=== PATIENT | female | born 1965 | race Caucasian/White ===

== ENCOUNTER 2017-12-29 09:52 | Emergency (ER) | payer OTHER, SELFPAY ==
[2017-12-29] MEDS ORDERED: HYDROCODONE/APAP 10/325 TAB ONE (10:34)
[2017-12-29] MEDS ORDERED: IBUPROFEN 400 MG TAB ONE (10:35)
[2017-12-29] MEDS ORDERED: IBUPROFEN 200 MG TAB PO ONE (10:35)
[2017-12-29 11:32] LABS: Urine Blood NEGATIVE (NEG); Urine Glucose NEGATIVE (NEG); Urine Protein NEGATIVE (NEG); Urine Specific Gravity 1.025 (1.005-1.030); Urine pH 6.5 (5.0-7.0)
--- NOTE | 2017-12-29 11:52 | RAD REPORT ---
EXAM DESCRIPTION: Ribs Right - 12/29/2017 10:39 am CLINICAL HISTORY: Fall, right-sided rib pain COMPARISON: August 2015 FINDINGS: No displaced rib fractures are present. The posterior- lateral right seventh and eighth ri bs show cortical irregularity that is favored to be old rib trauma change. The comparison portable st udy from 2016 is limited in the ability to correlate this finding. There is no displaced rib fracture present. No lytic, sclerotic or expansile rib lesion. No pneumotho rax, pulmonary contusion or acute parenchymal process. No measurable pleural fluid or blood. IMPRESSION: No displaced rib fracture present and no nondisplaced rib fracture confirmed. Cortical irregularity of the right seventh and eighth ribs believed to be sequela of old trauma. No pneumothorax, pulmonary contusion or pleural fluid collection.
--- NOTE | 2017-12-29 12:00 | EDPHYS ---
Physician Documentation [facility] Name: Jennifer Jones Age: 52 yrs Sex: Female : 1965 Arrival Date: 12/29/2017 Time: 09:54 Bed 19 Private MD: ED Physician Mitchell Ledezma HPI: 12/29 11:00 This 52 yrs old Female presents to ER via Ambulatory with complaints of Fall pm1 Injury. 11:00 Details of fall: The patient fell from an upright position, while standing. Onset: The pm1 symptoms/episode began/occurred yesterday. Associated injuries: The patient sustained right mid back. Severity of symptoms: in the emergency department the symptoms are unchanged. The patient has experienced a previous episode, many years ago, fall with 2 rib fractures. The patient has not recently seen a physician. Patient fell in her bathroom while turning around and hit her right posterior lower ribs against the tub. Patient reports pain with deep breathing and palpation. No headache, head injury, LOC, or neck pain. No shortness of breath or chest pain. IMAGING TECH: 09:59 LMP N/A - Post-menopause aj1 Historical: - Allergies: 09:59 No Known Allergies; aj1 - Home Meds: :59 None [Active]; aj1 - PMHx: 09:59 DJD; aj1 - PSHx: 09:59 Appendectomy; aj1 - Immunization history:: Flu vaccine is not up to date. - Social history:: Smoking status: Patient uses tobacco products, smokes one pack cigarettes per day. - Ebola Screening: : Patient denies travel to an Ebola-affected area in the 21 days before illness onset. ROS: 11:00 Constitutional: Negative for fever, chills, and weight loss, Eyes: Negative for injury, pm1 pain, redness, and discharge, ENT: Negative for injury, pain, and discharge, Neck: Negative for injury, pain, and swelling, Cardiovascular: Negative for chest pain, palpitations, and edema, Respiratory: Negative for shortness of breath, cough, wheezing, and pleuritic chest pain, Abdomen/GI: Negative for abdominal pain, nausea, vomiting, diarrhea, and constipation. 11:00 : Negative for injury, bleeding, discharge, and swelling, MS/Extremity: Negative for injury and deformity, Skin: Negative for injury, rash, and discoloration, Neuro: Negative for headache, weakness, numbness, tingling, and seizure. 11:00 Back: Positive for of the right mid back, pain, Negative for decreased range of motion. Exam: 11:00 Constitutional: This is a well developed, well nourished patient who is awake, alert, pm1 and in no acute distress. Head/Face: Normocephalic, atraumatic. Eyes: Pupils equal round and reactive to light, extra-ocular motions intact. Lids and lashes normal. Conjunctiva and sclera are non-icteric and not injected. Cornea within normal limits. Periorbital areas with no swelling, redness, or edema. ENT: Nares patent. No nasal discharge, no septal abnormalities noted. Tympanic membranes are normal and external auditory canals are clear. Oropharynx with no redness, swelling, or masses, exudates, or evidence of obstruction, uvula midline. Mucous membranes moist. Neck: Trachea midline, no thyromegaly or masses palpated, and no cervical lymphadenopathy. Supple, full range of motion without nuchal rigidity, or vertebral point tenderness. No Meningismus. Chest/axilla: Normal chest wall appearance and motion. Nontender with no deformity. No lesions are appreciated. Cardiovascular: Regular rate and rhythm with a normal S1 and S2. No gallops, murmurs, or rubs. Normal PMI, no JVD. No pulse deficits. Respiratory: Lungs have equal breath sounds bilaterally, clear to auscultation and percussion. No rales, rhonchi or wheezes noted. No increased work of breathing, no retractions or nasal flaring. Abdomen/GI: Soft, non-tender, with normal bowel sounds. No distension or tympany. No guarding or rebound. No evidence of tenderness throughout. 11:00 Skin: Warm, dry with normal turgor. Normal color with no rashes, no lesions, and no evidence of cellulitis. MS/ Extremity: Pulses equal, no cyanosis. Neurovascular intact. Full, normal range of motion. 11:00 Back: pain, of the right mid back, normal spinal alignment noted, CVA tenderness, is absent, vertebral tenderness, is not appreciated. 11:00 Neuro: Orientation: is normal, Motor: is normal, moves all fours, Gait: is steady, at a normal pace, without difficulty. Vital Signs: 09:59 BP 132 / 83; Pulse 89; Resp 18; Temp 97.3; Pulse Ox 97% on R/A; Weight 68.04 kg (R); aj1 Height 5 ft. 3 in. (160.02 cm) (R); Pain 10/10; 11:45 BP 112 / 71; Pulse 61; Resp 16; Pulse Ox 99% on R/A; Pain 0/10; em 09:59 Body Mass Index 26.57 (68.04 kg, 160.02 cm) [facility] MDM: 10:10 Patient medically screened. pm1 11:59 Data reviewed: vital signs. Data interpreted: Pulse oximetry: on room air is 97 %. pm1 Interpretation: normal. Counseling: I had a detailed discussion with the patient and/or guardian regarding: the historical points, exam findings, and any diagnostic results supporting the discharge/admit diagnosis, radiology results, the need for outpatient follow up, to return to the emergency department if symptoms worsen or persist or if there are any questions or concerns that arise at home. 11:59 ED course: pain improvement with medication given in the ER. pm1 12/29 11:21 Order name: Urine Dipstick--Ancillary (enter results); Complete Time: 11:36 eb 12/29 11:21 Order name: Urine --Ancillary (enter results); Complete Time: 11:36 eb 12/29 10:12 Order name: Ribs Right XRAY; Complete Time: 12:01 pm1 12/29 10:12 Order name: Chest Single View XRAY pm1 12/29 10:12 Order name: Urine Dipstick-Ancillary (obtain specimen); Complete Time: 11:33 pm1 12/29 10:12 Order name: Urine Test (obtain specimen); Complete Time: 11:33 pm1 Administered Medications: 10:55 Drug: [place] 10 mg-325 mg 1 tabs Route: PO; em 12:05 Follow up: Response: No adverse reaction; Pain is decreased em 10:55 Drug: Ibuprofen 600 mg Route: PO; em 12:05 Follow up: Response: No adverse reaction; Pain is decreased em Disposition: 17:45 Co-signature as Attending Physician, Mitchell Ledezma MD. rn Disposition: 12/29/17 12:00 Discharged to Home. Impression: Contusion of right back wall of thorax. - Condition is Stable. - Discharge Instructions: Rib Contusion. - Prescriptions for Naprosyn 500 mg Oral Tablet - take 1 tablet by ORAL route 2 times per day take with food; 30 tablet. Tylenol- Codeine #3 300-30 mg Oral Tablet - take 2 tablets by ORAL route every 6 hours As needed; 20 tablet. - Medication Reconciliation Form, Thank You Letter, Prescription Opioid Use form. - Follow up: Emergency Department; When: As needed; Reason: Worsening of condition. Follow up: Private Physician; When: 2 - 3 days; Reason: Recheck today's complaints, Continuance of care, Re-evaluation by your physician. - Problem is new. - Symptoms have improved. Signatures: Dispatcher [employer] EDCasie Frye RN RN aj1 Ladarius Nava, PATIENT BILLER PATIENT BILLER Mitchell Rosario MD MD rn Marinas, Patrick, EMA TELECOMMUNICATIONS FACILITY EXAMINER pm1 Corrections: (The following items were deleted from the chart) 12:11 12:00 12/29/2017 12:00 Discharged to Home. Impression: Contusion of right back wall of em thorax. Condition is Stable. Forms are Medication Reconciliation Form, Thank You Letter, Antibiotic Education, Prescription Opioid Use. Follow up: Emergency Department; When: As needed; Reason: Worsening of condition. Follow up: Private Physician; When: 2 - 3 days; Reason: Recheck today's complaints, Continuance of care, Re-evaluation by your physician. Problem is new. Symptoms have improved. pm1
--- NOTE | 2017-12-29 12:00 | ER ---
Nurse's Notes [facility] Name: Jennifer Jones Age: 52 yrs Sex: Female : 1965 Arrival Date: 12/29/2017 Time: 09:54 Bed 19 Private MD: Diagnosis: Contusion of right back wall of thorax Presentation: 12/29 09:57 Presenting complaint: Patient states: "I have a little bathroom and I tripped somehow aj1 and fell on my side straight on to the bathtub last night " Reports right rib pain and right mid back pain that is worse with deep breathing and coughing. Denies hitting head. Care prior to arrival: None. Mechanism of Injury: Fall from standing position. Trauma event details: Injury occurred in the [facility]. 09:57 Acuity: SUZANNE 4 aj1 09:57 Method Of Arrival: Ambulatory aj1 09:59 Transition of care: patient was not received from another setting of care. Onset of aj1 symptoms was December 28, 2017. Risk Assessment: Do you want to hurt yourself or someone else? Patient reports no desire to harm self or others. Initial Sepsis Screen: Does the patient meet any 2 criteria? No. Patient's initial sepsis screen is negative. Does the patient have a suspected source of infection? No. Patient's initial sepsis screen is negative. Triage Assessment: 09:59 General: Appears in no apparent distress. uncomfortable, Behavior is calm, cooperative, aj1 appropriate for age. Pain: Complains of pain in right mid back, right lateral posterior chest and right lateral anterior chest Pain currently is 10 out of 10 on a pain scale. Neuro: Level of Consciousness is awake, alert, obeys commands. Cardiovascular: Patient's skin is warm and dry. Respiratory: Airway is patent Respiratory effort is even, unlabored, Respiratory pattern is regular, symmetrical. 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 - Social history:: Smoking status: Patient uses tobacco products, smokes one pack cigarettes per day. - Ebola Screening: : Patient denies travel to an Ebola-affected area in the 21 days before illness onset. Screenin:00 Abuse screen: Denies threats or abuse. Nutritional screening: No deficits noted. em Tuberculosis screening: No symptoms or risk factors identified. Fall Risk None identified. Assessment: 10:30 General: Appears in no apparent distress. uncomfortable, Behavior is calm, cooperative, em Denies LOC or trauma to head. Pain: Complains of pain in right lateral anterior chest and right lateral posterior chest Pain currently is 10 out of 10 on a pain scale. Neuro: Level of Consciousness is awake, alert, obeys commands, Oriented to person, place, time, situation. Cardiovascular: Capillary refill < 3 seconds Patient's skin is warm and dry. Respiratory: Airway is patent Respiratory effort is even, unlabored, Respiratory pattern is regular, symmetrical, Breath sounds are clear bilaterally. GI: Abdomen is flat. : No signs and/or symptoms were reported regarding the genitourinary system. EENT: No signs and/or symptoms were reported regarding the EENT system. Derm: Skin is intact, Skin is pink, warm \\T\\ dry. Musculoskeletal: Range of motion: intact in all extremities. 10:35 Reassessment: I agree with previous assessment. hb 11:23 Reassessment: Patient appears in no apparent distress at this time. Patient and/or em family updated on plan of care and expected duration. Pain level reassessed. Patient is alert, oriented x 3, equal unlabored respirations, skin warm/dry/pink. Vital Signs: 09:59 BP 132 / 83; Pulse 89; Resp 18; Temp 97.3; Pulse Ox 97% on R/A; Weight 68.04 kg (R); aj1 Height 5 ft. 3 in. (160.02 cm) (R); Pain 10/10; 11:45 BP 112 / 71; Pulse 61; Resp 16; Pulse Ox 99% on R/A; Pain 0/10; em 09:59 Body Mass Index 26.57 (68.04 kg, 160.02 cm) aj1 ED Course: 09:54 Patient arrived in ED. as 09:59 Triage completed. aj1 09:59 Arm band placed on Patient placed in an exam room. aj1 10:01 Ming Salinas NP is PHCP. pm1 10:02 Mitchell Ledezma MD is Attending Physician. pm1 10:03 Ladarius Nava LVN is Primary Nurse. em 10:30 Patient has correct armband on for positive identification. Bed in low position. Call em light in reach. 10:30 No provider procedures requiring assistance completed. em 10:31 X-ray completed. Patient tolerated procedure well. Patient moved back from radiology. kw 10:32 Ribs Right XRAY In Process Unspecified. EDMS 10:32 Chest Single View XRAY In Process Unspecified. EDMS 12:07 Patient did not have IV access during this emergency room visit. em Administered Medications: 10:55 Drug: [place] 10 mg-325 mg 1 tabs Route: PO; em 12:05 Follow up: Response: No adverse reaction; Pain is decreased em 10:55 Drug: Ibuprofen 600 mg Route: PO; em 12:05 Follow up: Response: No adverse reaction; Pain is decreased em Outcome: 12:00 Discharge ordered by MD. pm1 12:07 Discharged to home ambulatory. em 12:07 Condition: good 12:07 Discharge instructions given to patient, Instructed on discharge instructions, follow up and referral plans. medication usage, Demonstrated understanding of instructions, follow-up care, medications, Prescriptions given X 2. 12:11 Patient left the ED. em Signatures: Dispatcher [employer] EDMS Casie Ng RN RN aj1 Ladarius Nava LVN LVN em Ana María Calvo Kimberlee Ming Salinas NP RULING TECHNICIAN pm1 Jessica Fang RN RN
--- NOTE | 2017-12-29 12:15 | RAD REPORT ---
EXAM DESCRIPTION: RAD - Chest Single View - 12/29/2017 10:38 am CLINICAL HISTORY: Fall, chest pain COMPARISON: Rib series same date, portable chest August 2015 TECHNIQUE: AP portable chest image was obtained 1021 hours . FINDINGS: Interstitial markings are similar to comparison. Heart and vasculature are normal. No pulm onary contusion, pneumothorax or pleural fluid collection. No acute rib finding seen. Ribs are furthe r detailed on separate examination. No acute aortic findings suspected. IMPRESSION: No acute cardiopulmonary process. No significant interval change.
[2017-12-29 12:22] VITALS: TEMP 97.3
[2017-12-29 12:24] VITALS: BP 112/71; O2SAT 99
== END 2017-12-29 12:11 | disposition home or self-care (01) ==
LOC: ER 09:52
DX: S20.221A Contusion of right back wall of thorax, initial encounter (principal); W18.39XA Other fall on same level, initial encounter; Y93.89 Activity, other specified; Y92.002 Bathroom of unspecified non-institutional (private) residence as the place of occurrence of the external cause; F17.210 Nicotine dependence, cigarettes, uncomplicated
CPT/HCPCS: 71045; 81003; 81025; 99283

== ENCOUNTER 2019-09-11 10:39 | Emergency (ER) | payer SELFPAY ==
[2019-09-11 11:27] LABS: Absolute Lymphocytes (CBC) 1.9 K/uL (0.7-4.9); Basophils % 0.6 % (0-1.3); Hematocrit 47.3 % (36.0-45.0); Lymphocytes % 16.5 % (15.3-44.8); MPV 7.9 fL (7.6-11.3)
[2019-09-11 11:38] LABS: ALT/SGPT 24 U/L (12-78); AST/SGOT 23 U/L (15-37); Albumin 3.4 g/dL (3.4-5.0); Alkaline Phosphatase 110 U/L (45-117); BUN Blood Urea Nitrogen 15 mg/dL (7-18); Bicarbonate 27 mmol/L (21-32); Bilirubin Direct 0.1 mg/dL (0-0.2); Bilirubin Total 0.6 mg/dL (0.2-1.0); Glucose Level 110 mg/dL (74-106); NT PRO-BNP 51 pg/mL (<125); Protein, Total 7.1 g/dL (6.4-8.2); Sodium Level 143 mmol/L (136-145); Troponin (Emerg Dept Use Only) < 0.02 ng/mL (0.0-0.045)
--- NOTE | 2019-09-11 11:48 | RAD REPORT ---
EXAM DESCRIPTION: Rodney Single View09/11/2019 11:32 am CLINICAL HISTORY: Chest pain COMPARISON: 2017 FINDINGS: The lungs are hyperaerated. The lungs appear clear of acute infiltrate. The heart is dusty l size IMPRESSION: No acute abnormalities displayed
--- NOTE | 2019-09-11 13:34 | EDPHYS ---
Physician Documentation [facility] Name: Jennifer Jones Age: 54 yrs Sex: Female : 1965 Arrival Date: 09/11/2019 Time: 10:47 Bed 5 Private MD: ED Physician Mitchell Ledezma HPI: 09/10 11:12 This 54 yrs old Female presents to ER via Ambulatory with complaints of chest rn pain, numbness of arm. 11:13 The patient or guardian reports chest pain that is located primarily in the anterior rn chest wall, right. Onset: yesterday. The pain radiates to the right arm. The chest pain is described as aching, a heaviness. Duration: The patient or guardian reports multiple episodes, that are intermittent, the episodes last approximately 2 hour(s). Modifying factors: The symptoms are alleviated by nothing. the symptoms are aggravated by nothing. Severity of pain: At its worst the pain was mild in the emergency department the pain is unchanged. The patient has not experienced similar symptoms in the past. Reports right upper/outer chest pain, began yesterday, intermittent, no fever/cough/trauma/sob. No abd pain. No hx of cardiac problems. Reports long lasting episodes that can last for hours, goes away on their own, then returns, happened again today so came in for eval. . Historical: - Allergies: 10:55 No Known Allergies; iw - Home Meds: 10:55 None [Active]; iw - PMHx: 10:55 DJD; iw - PSHx: 10:55 Appendectomy; iw - Immunization history:: Adult Immunizations not up to date. - Social history:: Smoking status: Patient reports the use of cigarette tobacco products, smokes one pack cigarettes per day. - Family history:: not pertinent. - Hospitalizations: : No recent hospitalization is reported. ROS: 11:13 Constitutional: Negative for fever, chills, and weight loss, Eyes: Negative for injury, rn pain, redness, and discharge, Neck: Negative for injury, pain, and swelling, Cardiovascular: Negative for palpitations, and edema, Respiratory: Negative for shortness of breath, cough, wheezing, and pleuritic chest pain, Abdomen/GI: Negative for abdominal pain, nausea, vomiting, diarrhea, and constipation, Back: Negative for injury and pain, MS/Extremity: Negative for injury and deformity, Skin: Negative for injury, rash, and discoloration, Neuro: Negative for headache, weakness, and seizure. Exam: 11:12 ECG was reviewed by the Attending Physician. rn 11:13 Constitutional: This is a well developed, well nourished patient who is awake, alert, rn and in no acute distress. Head/Face: Normocephalic, atraumatic. Neck: Trachea midline, no thyromegaly or masses palpated, and no cervical lymphadenopathy. Supple, full range of motion without nuchal rigidity, or vertebral point tenderness. No Meningismus. Cardiovascular: Regular rate and rhythm, No JVD. No pulse deficits. Respiratory: No increased work of breathing, no retractions or nasal flaring. Abdomen/GI: soft, non-tender MS/ Extremity: Pulses equal, no cyanosis. Neurovascular intact. Full, normal range of motion. Equal circumference. Neuro: Awake and alert, GCS 15, oriented to person, place, time, and situation. Motor strength 5/5 in all extremities. Sensory grossly intact. Cerebellar exam normal. Vital Signs: 10:50 BP 155 / 94; Pulse 89; Resp 15 S; Temp 98.1(TE); Pulse Ox 97% on R/A; Weight 65.77 kg ca1 (R); Height 5 ft. 4 in. (162.56 cm) (R); 11:17 BP 142 / 96; Pulse 87; Resp 18 S; Pulse Ox 97% on R/A; aa5 12:55 BP 122 / 88; Pulse 80; Resp 17; Pulse Ox 99% ; bp 10:50 Body Mass Index 24.89 (65.77 kg, 162.56 cm) ca1 MDM: 10:48 Patient medically screened. rn 13:31 Differential diagnosis: acute myocardial infarction, acute pericarditis, anxiety, rn coronary artery disease chest wall pain, pleurisy, pneumothorax, radiculopathy. Data reviewed: vital signs, nurses notes, lab test result(s), EKG, radiologic studies, plain films, and as a result, I will discharge patient. Counseling: I had a detailed discussion with the patient and/or guardian regarding: the historical points, exam findings, and any diagnostic results supporting the discharge/admit diagnosis, lab results, radiology results, the need for outpatient follow up, to return to the emergency department if symptoms worsen or persist or if there are any questions or concerns that arise at home. Special discussion: I discussed with the patient/guardian in detail that at this point there is no indication for admission to the hospital. It is understood, however, that if the symptoms persist or worsen the patient needs to return immediately for re-evaluation. Based on the history and exam findings, there is no indication for further emergent testing or inpatient evaluation. I discussed with the patient/guardian the need to see the manager universal for further evaluation of the symptoms. ED course: Pt with 2 neg trop, no ischemia on ECG, no acute findings on CXR. Will dc home with instructions to f/u with cardiology for stress test. Will dc home with steroids for possible radiculopathy. . 09/10 11:05 Order name: Basic Metabolic Panel; Complete Time: 09/10 11:05 Order name: CBC with Diff; Complete Time: 09/10 11:05 Order name: LFT's; Complete Time: 09/10 11:05 Order name: NT PRO-BNP; Complete Time: 09/10 11:05 Order name: Troponin (emerg Dept Use Only); Complete Time: 09/10 12:30 Order name: Troponin (emerg Dept Use Only); Complete Time: 13:09/10 11:05 Order name: XRAY Chest (1 view); Complete Time: 12:01 09/10 11:05 Order name: EKG; Complete Time: :09/10 11:05 Order name: Cardiac monitoring; Complete Time: :09/10 11:05 Order name: EKG - Nurse/Tech; Complete Time: :09/10 11:05 Order name: IV Saline Lock; Complete Time: :09/10 11:05 Order name: Labs collected and sent; Complete Time: :09/10 11:05 Order name: O2 Per Protocol; Complete Time: :09/10 12:30 Order name: EKG; Complete Time: 12:31 09/10 11:05 Order name: O2 Sat Monitoring; Complete Time: :09/10 12:30 Order name: EKG - Nurse/Tech; Complete Time: 12:54 rn EC:12 Rate is 86 beats/min. Rhythm is regular. QRS [place] is Normal. [place] interval is normal. QRS rn interval is normal. QT interval is normal. No Q waves. T waves are Normal. No ST changes noted. Clinical impression: Normal ECG. Interpreted by me. Reviewed by me. Administered Medications: No medications were administered Disposition: 09/11/19 13:33 Discharged to Home. Impression: Paresthesia of skin, Chest pain, unspecified. - Condition is Stable. - Discharge Instructions: Cervical Radiculopathy, Nonspecific Chest Pain, Paresthesia. - Prescriptions for Medrol (Henry) 4 mg Oral Tablets, Dose Pack - take 1 tablet by ORAL route as directed - follow package instructions; 1 packet. - Medication Reconciliation Form, Thank You Letter, Antibiotic Education, Prescription Opioid Use form. - Follow up: Jared Rosas MD; When: As needed; Reason: Recheck today's complaints, Re-evaluation by your physician. - Problem is new. - Symptoms are unchanged. Signatures: Dispatcher [employer] EDMarry Raymond RN RN iw Mitchell Ledezma MD MD blast furnace helper: (The following items were deleted from the chart) 13:55 13:33 09/11/2019 13:33 Discharged to Home. Impression: Paresthesia of skin; Chest pain, iw unspecified. Condition is Stable. Forms are Medication Reconciliation Form, Thank You Letter, Antibiotic Education, Prescription Opioid Use. Follow up: Jared Rosas; When: As needed; Reason: Recheck today's complaints, Re-evaluation by your physician. Problem is new. Symptoms are unchanged. rn
--- NOTE | 2019-09-11 13:34 | ER ---
Nurse's Notes [facility] Name: Jennifer Jones Age: 54 yrs Sex: Female : 1965 Arrival Date: 09/11/2019 Time: 10:47 Bed 5 Private MD: Diagnosis: Paresthesia of skin;Chest pain, unspecified Presentation: 09/10 10:50 Chief complaint: Patient states: Chest pain since yesterday, radiating to the R arm. ca1 Reports lightheadedness. Denies history of previous heart attacks or heart conditions. Coronavirus screen: Proceed with normal triage. Patient denies a cough. Patient denies shortness of breath or difficulty breathing. Patient denies measured and/or subjective temperature greater than 100.4F prior to today's visit. Patient denies travel on a cruise ship or to a country the [facility] currently lists as an affected area. Patient denies contact with known and/or suspected case of COVID-19. Ebola Screen: Patient negative for fever greater than or equal to 101.5 degrees Fahrenheit, and additional compatible Ebola Virus Disease symptoms Patient denies exposure to infectious person. Patient denies travel to an Ebola-affected area in the 21 days before illness onset. No symptoms or risks identified at this time. Initial Sepsis Screen: Does the patient meet any 2 criteria? No. Patient's initial sepsis screen is negative. Does the patient have a suspected source of infection? No. Patient's initial sepsis screen is negative. Risk Assessment: Do you want to hurt yourself or someone else? Patient reports no desire to harm self or others. Onset of symptoms was September 11, 2019. 10:50 Method Of Arrival: Ambulatory ca1 10:50 Acuity: SUZANNE 3 ca1 Historical: - Allergies: 10:55 No Known Allergies; iw - Home Meds: 10:55 None [Active]; iw - PMHx: 10:55 DJD; iw - PSHx: 10:55 Appendectomy; iw - Immunization history:: Adult Immunizations not up to date. - Social history:: Smoking status: Patient reports the use of cigarette tobacco products, smokes one pack cigarettes per day. - Family history:: not pertinent. - Hospitalizations: : No recent hospitalization is reported. Screenin:00 Abuse screen: Denies threats or abuse. Nutritional screening: No deficits noted. aa5 Tuberculosis screening: No symptoms or risk factors identified. Fall Risk None identified. Assessment: 11:00 General: Appears comfortable, Behavior is calm, cooperative. Pain: Complains of pain in aa5 anterior aspect of right upper chest Pain radiates to right arm Pain currently is 0 out of 10 on a pain scale. Quality of pain is described as sharp, shooting, Is intermittent. Neuro: Level of Consciousness is awake, alert, obeys commands, Oriented to person, place, time, situation, Reports intermittent right arm numbness . Cardiovascular: Patient's skin is warm and dry. Respiratory: Airway is patent Respiratory effort is even, unlabored, Respiratory pattern is regular, symmetrical. GI: Patient currently denies abdominal pain. : No signs and/or symptoms were reported regarding the genitourinary system. EENT: No signs and/or symptoms were reported regarding the EENT system. Derm: Skin is pink, warm \T\ dry. Musculoskeletal: Range of motion: intact in all extremities. 11:20 Reassessment: x-ray at bedside . aa5 12:35 Reassessment: Repeat troponin drawn and sent to lab. . aa5 12:38 Reassessment: Pt ambulatory to restroom. . aa5 12:38 Reassessment: Patient is alert, oriented x 3, equal unlabored respirations, skin aa5 warm/dry/pink. 12:50 Reassessment: Repeat EKG completed by engineering technical writer . aa5 13:50 Reassessment: Patient is alert, oriented x 3, equal unlabored respirations, skin aa5 warm/dry/pink. Vital Signs: 10:50 BP 155 / 94; Pulse 89; Resp 15 S; Temp 98.1(TE); Pulse Ox 97% on R/A; Weight 65.77 kg ca1 (R); Height 5 ft. 4 in. (162.56 cm) (R); 11:17 BP 142 / 96; Pulse 87; Resp 18 S; Pulse Ox 97% on R/A; aa5 12:55 BP 122 / 88; Pulse 80; Resp 17; Pulse Ox 99% ; bp 10:50 Body Mass Index 24.89 (65.77 kg, 162.56 cm) ca1 ED Course: 10:47 Patient arrived in ED. bp1 10:48 Mitchell Ledezma MD is Attending Physician. rn 10:50 Arm band placed on right wrist. ca1 10:51 Kathie Neff, RN is Primary Nurse. aa5 10:52 Triage completed. ca1 11:00 Patient has correct armband on for positive identification. Placed in gown. Bed in low aa5 position. Call light in reach. Side rails up X2. surveillance system monitor on. Pulse ox on. NIBP on. 11:09 Initial lab(s) drawn, by me, sent to lab. Inserted saline lock: 20 gauge in right aa5 antecubital area, using aseptic technique. Blood collected. 11:28 XRAY Chest (1 view) In Process Unspecified. EDMS 12:59 EKG done, by ED staff, reviewed by Mitchell Ledezma MD. 5 13:32 Jared Rosas MD is Referral Physician. rn 13:50 IV discontinued, intact, bleeding controlled, No redness/swelling at site. Pressure aa5 dressing applied. 13:50 No provider procedures requiring assistance completed. aa5 Administered Medications: No medications were administered Outcome: 13:33 Discharge ordered by MD. rn 13:50 Discharged to home ambulatory. aa5 13:50 Condition: stable 13:50 Discharge instructions given to patient, Instructed on discharge instructions, follow up and referral plans. medication usage, Demonstrated understanding of instructions, follow-up care, medications, Prescriptions given X 1. 13:55 Patient left the ED. iw Signatures: Dispatcher [employer] EDMS Marry Altamirano, FIDELINA KITCHEN iw Mitchell Ledezma MD MD rn Calderon, Audri, RN RN [email or web address] Rosalba Calvo [facility] Javi Husain RN RN bp Acob, FIDELINA Estevez RN ca1 Cassandra Love bp1 Corrections: (The following items were deleted from the chart) 11:20 11:00 Neuro: Level of Consciousness is awake, alert, obeys commands, Oriented to aa5 person, place, time, situation, aa5 12:57 12:55 Reassessment: REPEAT TROPONIN AND EKG COMPLETED. DISPO PENDING bp aa5
[2019-09-11 14:13] VITALS: TEMP 98.1
[2019-09-11 14:16] VITALS: BP 122/88; O2SAT 99
--- NOTE | 2019-09-12 07:25 | EKG ---
Test Date: 2019-09-11 Test Time: 12:46:58 Electric Organ Assembler And Checker: CHANDAN MEASUREMENT RESULTS: Intervals: Rate: 65 LA: 124 QRSD: 76 QT: 412 QTc: 428 [place]: P: 75 LA: 124 QRS: 92 T: 72 INTERPRETIVE STATEMENTS: Normal sinus rhythm Possible Left atrial enlargement Rightward axis Borderline ECG Compared to ECG 09/11/2019 11:02:17 Right-axis deviation now present Electronically Signed On 09-12-19 07:23:06 CDT by Jared Rosas
--- NOTE | 2019-09-12 07:26 | EKG ---
Test Date: 2019-09-11 Test Time: 11:02:17 Templer Head: CHANDAN MEASUREMENT RESULTS: Intervals: Rate: 86 IN: 120 QRSD: 76 QT: 350 QTc: 418 [place]: P: 79 IN: 120 QRS: 89 T: 67 INTERPRETIVE STATEMENTS: Normal sinus rhythm Possible Left atrial enlargement Borderline ECG Compared to ECG 09/07/2015 19:13:27 No significant changes Electronically Signed On 09-12-19 07:23:29 CDT by Jared Rosas
== END 2019-09-11 13:55 | disposition home or self-care (01) ==
LOC: ER 10:39
DX: R07.9 Chest pain, unspecified (principal); F17.210 Nicotine dependence, cigarettes, uncomplicated
CPT/HCPCS: 36415; 71045; 80048; 80076; 83880; 84484; 85025; 93005; 99284

== ENCOUNTER → 2023-03-10 | Emergency (ER) | payer SELFPAY ==
--- NOTE | 2023-03-10 15:25 | EDPHYS ---
Physician Documentation [facility] Name: Jennifer Barnhart Age: 57 yrs Sex: Female : 1965 Arrival Date: 03/10/2023 Time: 13:01 Bed IW2 Private MD: ED Physician Sydni Weaver HPI: 03/10 13:40 This 57 yrs old Female presents to ER via Ambulatory with complaints of Shingles. cp 13:40 The patient's rash thought to be caused by an unknown cause. The rash is located on the cp right groin and right hip. The rash can be described as papular, itchy, burning, painful. Onset: The symptoms/episode began/occurred 4-5 days ago. Historical: - Allergies: 13:27 No Known Allergies; aa5 - PMHx: 13:30 Degenerative Joint Disease; aa5 - PSHx: 13:27 Appendectomy; aa5 - Immunization history:: Adult Immunizations unknown. - Social history:: Smoking status: Patient reports the use of cigarette tobacco products. ROS: 13:45 Eyes: Negative for injury, pain, redness, and discharge, cp 13:45 Constitutional: Negative for body aches, chills, fever, poor PO intake, 13:45 Cardiovascular: Negative for chest pain, 13:45 Respiratory: Negative for cough, shortness of breath, wheezing, 13:45 Abdomen/GI: Negative for abdominal pain, nausea, vomiting, and diarrhea, 13:45 : Negative for urinary symptoms, 13:45 Skin: Positive for rash, of the right hip and right groin, 13:45 Neuro: Negative for altered mental status, headache, weakness, 13:45 All other systems are negative, Exam: 15:23 Constitutional: The patient appears in no acute distress, alert, awake, non-toxic, well cp developed, well nourished, 15:23 Head/Face: Normocephalic, atraumatic. cp 15:23 Eyes: Periorbital structures: appear normal, Conjunctiva: normal, no exudate, no injection, Lids and lashes: appear normal, bilaterally, 15:23 Chest/axilla: Inspection: normal, 15:23 Cardiovascular: Rate: normal, 15:23 Respiratory: the patient does not display signs of respiratory distress, Respirations: normal, no use of accessory muscles, no retractions, labored breathing, is not present, 15:23 Abdomen/GI: Inspection: abdomen appears normal, Palpation: abdomen is soft and non-tender, in all quadrants, 15:23 Skin: rash can be described as papular, on the right lower back and right hip and right groin, Vital Signs: 13:27 BP 134 / 88; Pulse 87; Resp 18 S; Temp 98.2(O); Pulse Ox 97% on R/A; Weight 72.57 kg aa5 (R); Height 5 ft. 3 in. (R); 13:27 Body Mass Index 28.34 (72.57 kg, 160.02 cm) aa5 MDM: 13:32 Patient medically screened. cp 15:24 Data reviewed: vital signs, nurses notes, and as a result, I will discharge patient. cp 15:24 Differential diagnosis: allergic reaction, shingles, cellulitis. Counseling: I had a cp detailed discussion with the patient and/or guardian regarding the historical points, exam findings, and any diagnostic results supporting the discharge/admit diagnosis, the need for outpatient follow up, a family practitioner, to return to the emergency department if symptoms worsen or persist or if there are any questions or concerns that arise at home. Administered Medications: 15:55 Not Given (Patient Refused): lidodermpatch 5 % (700 mg/patch) 1 patches Topical once; me1 leave on for 12 hours; cover most painful area; may cut into smaller pieces 15:55 Not Given (Patient Refused): [id number] mg PO once me1 Disposition Summary: 03/10/23 15:24 Discharge Ordered Notes: Location: Home cp Problem: new cp Symptoms: are unchanged cp Condition: Stable cp Diagnosis - Zoster without complications cp Followup: cp - With: Private Physician - When: 2 - 3 days - Reason: Recheck today's complaints Discharge Instructions: - Discharge Summary Sheet cp - Neuropathic Pain cp - Shingles cp Forms: - Medication Reconciliation Form cp - Thank You Letter cp - Antibiotic Education cp - Prescription Opioid Use cp - Patient Portal Instructions cp - Leadership Thank You Letter cp Prescriptions: - Neurontin 300 mg Oral Capsule - take 1 capsule ORAL route every 8 hours; 30 capsule; Refills: 0, Product cp Selection Permitted - Diclofenac Sodium 75 mg Oral Tablet Sustained Release - take 1 tablet ORAL route 2 times per day; 30 tablet; Refills: 0, Product cp Selection Permitted - Acyclovir 800 mg Oral Tablet - take 1 tablet ORAL route 5 times per day for 10 days; 50 tablet; Refills: 0, cp Product Selection Permitted Signatures: Kathie Neff RN RN aa5 Jamison Stevens PA PA cp Eddleman, Michelle RN me1 Corrections: (The following items were deleted from the chart) 13:30 13:29 Social history: Smoking status: Patient denies any tobacco usage or history of. aa5 aa5 13:31 13:29 PMHx: None; aa5 aa5 03/11 15:33 This 57 yrs old Female presents to ER via Ambulatory with complaints of cp Shingles. 03/11 15:33 The patient's rash thought to be caused by an unknown cause, [facility] 03/11 15:33 The rash is located on the right groin and right hip, [facility] 03/11 15:33 The rash can be described as papular, itchy, burning, painful cp 03/11 15:33 Onset: The symptoms/episode began/occurred 4-5 days ago, [facility] 03/11 15:40 Constitutional: Negative for body aches, chills, fever, poor PO intake, cp 03/11 15:40 Cardiovascular: Negative for chest pain, [facility] 03/11 15:40 Respiratory: Negative for cough, shortness of breath, wheezing, cp 03/11 15:40 Abdomen/GI: Negative for abdominal pain, nausea, vomiting, and diarrhea, cp 03/11 15:40 Skin: Positive for rash, of the right hip and right groin, [facility] 03/11 15:40 Neuro: Negative for altered mental status, headache, weakness, cp 03/11 15:40 : Negative for urinary symptoms, cp 03/11 15:40 Eyes: Negative for injury, pain, redness, and discharge, cp 01/13 01:54 01/12 15:40 All other systems are negative, cp cp
--- NOTE | 2023-03-10 15:25 | ER ---
Nurse's Notes [facility] Name: Jennifer Barnhart Age: 57 yrs Sex: Female : 1965 Arrival Date: 03/10/2023 Time: 13:01 Bed IW2 Private MD: Diagnosis: Zoster without complications Presentation: 03/10 13:27 Chief complaint: Patient states: "I think I have shingles". Pt reports rash to right aa5 hip area, pt reports rash is painful. Coronavirus screen: At this time, the client does not indicate any symptoms associated with coronavirus-19. Ebola Screen: Patient denies travel to an Ebola-affected area in the 21 days before illness onset. Initial Sepsis Screen: Does the patient meet any 2 criteria? No. Patient's initial sepsis screen is negative. Does the patient have a suspected source of infection? No. Patient's initial sepsis screen is negative. Risk Assessment: Do you want to hurt yourself or someone else? Patient reports no desire to harm self or others. Onset of symptoms was March 05, 2023. 13:27 Method Of Arrival: Ambulatory aa5 13:27 Acuity: SUZANNE 5 aa5 Historical: - Allergies: 13:27 No Known Allergies; aa5 - PMHx: 13:30 Degenerative Joint Disease; aa5 - PSHx: 13:27 Appendectomy; aa5 - Immunization history:: Adult Immunizations unknown. - Social history:: Smoking status: Patient reports the use of cigarette tobacco products. Screenin:52 [facility] ED Fall Risk Assessment (Adult) History of falling in the last 3 months, me1 including since admission No falls in past 3 months (0 pts) Confusion or Disorientation No (0 pts) Intoxicated or Sedated No (0 pts) Impaired Gait No (0 pts) Mobility Assist Device Used No (0 pt) Altered Elimination No (0 pt) Score/Fall Risk Level 0 - 2 = Low Risk Provided non-skid footwear, Hourly rounding (assess needs \\T\\ fall precautionary measures) done. Abuse screen: Denies threats or abuse. Nutritional screening: No deficits noted. Tuberculosis screening: No symptoms or risk factors identified. Assessment: 15:52 General: Appears uncomfortable, well groomed, well developed, well nourished, Behavior me1 is calm, cooperative, appropriate for age, Reports rash to right hip area that is very painful. Pain: Complains of pain in right hip Pain does not radiate. Pain currently is 4 out of 10 on a pain scale. Quality of pain is described as burning, stinging, Pain began 2-3 days ago. Is continuous. Neuro: Level of Consciousness is awake, alert, obeys commands, Oriented to person, place, time, situation, Appropriate for age. Cardiovascular: Capillary refill < 3 seconds Patient's skin is warm and dry. Respiratory: Airway is patent Trachea midline Respiratory effort is even, unlabored, Respiratory pattern is regular, symmetrical. Derm: Rash noted that is vesicular, on right hip. Vital Signs: 13:27 BP 134 / 88; Pulse 87; Resp 18 S; Temp 98.2(O); Pulse Ox 97% on R/A; Weight 72.57 kg aa5 (R); Height 5 ft. 3 in. (R); 13:27 Body Mass Index 28.34 (72.57 kg, 160.02 cm) aa5 ED Course: 13:09 Patient arrived in ED. mr 13:17 Jamison Stevens PA is PHCP. cp 13:17 Sydni Weaver MD is Attending Physician. cp 13:27 Arm band placed on. aa5 13:29 Triage completed. aa5 15:52 Patient has correct armband on for positive identification. Bed in low position. Call me1 light in reach. Side rails up X 1. Provided Education on: POC. Verbalized understanding. . 15:52 No provider procedures requiring assistance completed. Patient did not have IV access me1 during this emergency room visit. Administered Medications: 15:55 Not Given (Patient Refused): lidodermpatch 5 % (700 mg/patch) 1 patches Topical once; me1 leave on for 12 hours; cover most painful area; may cut into smaller pieces 15:55 Not Given (Patient Refused): [id number] mg PO once me1 Medication: 15:52 VIS not applicable for this client. me1 Outcome: 15:24 Discharge ordered by MD. cp 15:52 Discharged to home ambulatory, me1 15:52 Condition: stable 15:52 Discharge instructions given to patient, Instructed on discharge instructions, follow up and referral plans. medication usage, Demonstrated understanding of instructions, follow-up care, medications, Prescriptions given X 3, 15:55 Patient left the ED. me1 Signatures: Flori Barron, Reg Reg mr NeffKathie, RN RN aa5 Jamison Stevens PA PA Yadi Jimenez RN RN me1 Corrections: (The following items were deleted from the chart) 13:30 13:29 Social history: Smoking status: Patient denies any tobacco usage or history of. aa5 aa5 13: 13:29 PMHx: None; aa5 aa5
[2023-03-10 18:46] VITALS: BP 134/88; TEMP 98.2; O2SAT 97
== END ==
LOC: ER 13:01
DX: B02.9 Zoster without complications (principal)
CPT/HCPCS: 99283